=== PATIENT | male | born 1965 | race Caucasian/White ===

== ENCOUNTER 2024-02-10 15:48 | Emergency (ER) | payer MEDICARE, MEDICAID, SELFPAY ==
[2024-02-10 15:54] VITALS: BP 139/82; PULSE 92; RESP 17; TEMP 36.8; O2SAT 98; BMI 29.7
--- NOTE | 2024-02-10 15:59 | ED_ITS ---
HPI - Wound/Laceration General: Chief Complaint: Wound/Laceration Stated Complaint: left foot toe lac Time Seen by Provider: 02/10/24 15:58 Source: patient Mode of arrival: ambulatory History of Present Illness: 58-year-old male presents emergency room complaining of a laceration to his Left fifth toe. He was using a riding mower and got his toe caught in a belt and kirill. He applied a bandage before coming in. He is complaining of pain. Moderate bleeding. Patient is a smoker and he has rheumatoid arthritis he is on methotrexate Associated symptoms: Denies chills or fever(s) Review of Systems Const: Denies: fever(s) or chills PFSH ED PFSH: Medical History (Updated 02/10/24 @ 18:15 by Herminio Curry DO) Chronic GERD Illiteracy Colonoscopy planned screening requested at [facility] 06/22/2023 Tobacco user Chews tobacco Hypertension Insomnia Anxiety and depression Hyperlipidemia Rheumatoid arthritis at [facility] Rheumatology Seasonal allergic rhinitis Family History (Updated 11/09/23 @ 13:26 by Lala Simmons LPN) Father Dialysis complication Mother Dementia Social History (Updated 11/09/23 @ 13:26 by Lala Simmons LPN) Smoking and tobacco/nicotine status: never used tobacco/nicotine Alcohol intake: former Substance/Drug Use: current Substance/Drug use frequency: few times a month Physical Exam Narrative: EXAM NARRATIVE: Large open wound at the distal interphalangeal joint of the right fifth toe the toe itself is unstable appears nearly amputated. On x-ray there is disruption of the DIP joint with air in the joint. Course Vital Signs: Vital signs: Vital Signs Temperature 98.2 F 02/10/24 18:31 Pulse Rate 91 02/10/24 18:31 Respiratory Rate 17 02/10/24 18:31 Blood Pressure 148/98 02/10/24 18:31 Pulse Oximetry 97 02/10/24 18:31 Oxygen Delivery Me thod Room Air 02/10/24 16:32 MDM - Wound/Laceration Medical Decision Making Open fracture with disruption of the joint. Podiatry consulted Dr. Panda was kind enough to come in he evaluated the wound irrigated and has sutured in place he will follow-up next week in the office. Patient started on doxycycline and given hydrocodone for pain discharged home on a postop shoe he may bear weight as tolerated return for signs of infection. Differential Diagnosis Likely laceration Medical Records I reviewed the patient's medical records. Lab Data I reviewed the patient's lab results. Radiology Impressions Foot X-Ray 02/10/24 16:02 IMPRESSION: 1. Laceration of the 5th digit. No radiopaque foreign body. 2. Dislocated distal phalanx of the 5th digit. Transverse fracture through the mid proximal 5th phalanx. ADDENDUM: 02/10/24 2103 Correction, the fracture described in the mid proximal phalanx could also represent a prominent vascular channel, it is a questionable fracture correlate for point tenderness. All radiology interpretation(s) finalized by discharge Discharge Plan Discharge Patient Disposition: Home Clinical Impression: Open fracture of toe of left foot, Laceration Prescriptions: New doxycycline hyclate 100 mg tablet 100 mg PO Q12H 14 Days Qty: 28 0RF hydrocodone-acetaminophen 5-325 mg tablet 1 tab PO Q6H PRN (Reason: pain) 5 Days Qty: 20 0RF No Action duloxetine 60 mg capsule,delayed release(DR/EC) 60 mg PO DAILY fluticasone propionate [Allergy Relief (fluticasone)] 50 mcg/actuation spray,suspension 2 spray intranasal DAILY Rx Instructions: administer into each nostril cetirizine [All Day Allergy (cetirizine)] 10 mg tablet 10 mg PO DAILY PRN (Reason: Allergy Symptoms) lisinopril-hydrochlorothiazide 20-12.5 mg tablet 1 tab PO DAILY Qty: 90 1RF Rx Instructions: NOT STARTED OF 02/10/24 WILL START 02/15/24 folic acid 1 mg tablet 1 mg PO DAILY Qty: 100 1RF diclofenac sodium 75 mg tablet,delayed release (DR/EC) 75 mg PO BID trazodone 50 mg tablet 25 mg PO BEDTIME famotidine 20 mg tablet 20 mg PO BID methotrexate sodium 2.5 mg tablet 17.5 mg PO Q7D Rx Instructions: take #7 tabs weekly, 17.5 mg-ON FRI bupropion HCl 150 mg tablet extended release 24 hr 150 mg PO DAILY Rx Instructions: FOR depression / tobacco cessation lisinopril-hydrochlorothiazide 10-12.5 mg tablet 1 tab PO DAILY Discharge Orders: Discharge ED (Routine); Ordered 02/10/24 Ordered By: Herminio Curry Referrals: Beka Huber MD [Primary Care Provider] - Patient Instructions: Opioid Safety, Pain Management Activity Restrictions/Additional Instructions: Orders from Dr. Panda D.P.M. Please keep your dressing clean, dry and intact until your follow-up visit next week in podiatry clinic with Dr. Panda. Please elevate your left foot while resting. Please wear postop shoe when weightbearing, overall please decrease your activity. You will be contacted on Monday by podiatry clinic for an appointment to be scheduled early next week. Please take doxycycline with food morning and night for the next 14 days [facility] Pain medication hydrocodone 5/325 mg was sent to [facility] to be taken every 6 hours as needed for pain for the next [address] Panda at podiatry clinic [facility] with any questions or concerns for the weekend. 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
--- NOTE | 2024-02-10 16:02 | XRR_ITS ---
PROCEDURE INFORMATION: Exam: XR Left Foot Exam date and time: 02/10/2024 4:22 PM Age: 58 years old Clinical indication: Injury or trauma; Fall; Toes; Left little toe; Foreign body involvement not specified; Patient HX: Laceration to 5th digit of left foot TECHNIQUE: Imaging protocol: Radiologic exam of the left foot. Views: 3 or more views. COMPARISON: No relevant prior studies available. FINDINGS: Bones/joints: Dislocated distal phalanx of the 5th digit. Transverse fracture through the mid proximal 5th phalanx. Soft tissues: Laceration at the 5th digit. No radiopaque foreign body. XR/XR foot LT min 3V* [id number] IMPRESSION: 1. Laceration of the 5th digit. No radiopaque foreign body. 2. Dislocated distal phalanx of the 5th digit. Transverse fracture through the mid proximal 5th phalanx.
[2024-02-10 16:32] VITALS: PULSE 91; O2SAT 97
[2024-02-10] MEDS: ceFAZolin 1,000 MG in sodium chloride 0.9% (plus) 50 ML 100 MG IV (16:37)
[2024-02-10] MEDS: tetanus-dipt-pertussis 0.5 mL SDV IM (16:41)
--- NOTE | 2024-02-10 16:44 | PC.PHAR ---
PT AND PTS SON STATES THE PT GETS HIS MED IN A DOSE [place]-PT STATES HE HASNT STARTED HIS NEW DOSE OF LISINOPRIL 20-HCTZ 12.5MG DAILY WRITTEN ON 02/06/24 STATES PHARMACY WILL BRING 02/15/24 PT STATES STILL TAKING THE LISINOPRIL 10-HCTZ 12.5MG DAILY FILLED ON 01/13/24 30D/S-PT STATES HE TAKES TRAZODONE ONE HALF TAB ONLY PT STATES 25MG HS EXT SHOWS LAST FILLED FOR 50MG TABS TAKE ONE AND ONE-HALF TAB (75MG) HS PT STATES IT WAS FILLED WRONG AND ONLY TAKES THE 25MG HS-NOTES ARE MADE IN THE PHARMACY COMMENTS
[2024-02-10 17:48] VITALS: BP 148/98
--- NOTE | 2024-02-10 17:58 | PM.CONSULT ---
Providers/Reason For Consult Consulting Physician/Specialty*: Kaden Panda D.P.M. Reason for Consult*: Open fracture with laceration left fifth toe, lawnmower trauma Primary Care Provider: Beka Huber MD History of Present Illness History of Present Illness Piero Mattson is a 58 year old male presents to the emergency department with a open toe fracture left fifth toe, sustained an injury from a lawnmower with his foot excellently being caught in a belt and ran to a kirill, date of injury February 10, 2024. Patient utilizes tobacco daily, history of rheumatoid arthritis is on methotrexate. Review of Systems General: Reports: 10 or more systems reviewed and unremarkable except in HPI and below Const: Denies: fever(s) or chills Eyes: Denies: change in vision Card: Denies: chest pain or palpitations Resp: Denies: dyspnea or productive cough GI: Denies: abdominal pain, nausea or vomiting : Denies: flank pain Musc: Reports: extremity swelling, joint stiffness and deformity Skin/Breast: Reports: erythema, sores, changes in skin color, dry skin, nail changes and change in hair Neuro: Reports: numbness in extremities, sensory changes and difficulty walking Psych: Denies: suicidal ideation Endo: Denies: change in body appearance Tiago/Lymph: Denies: tender lymph nodes Medications/Allergies Home Medications Medication Instructions Recorded Confirmed Last Taken Type cetirizine 10 mg tablet (All Day 10 mg PO DAILY PRN Allergy Symptoms 11/09/23 02/12/24 Unknown History Allergy (cetirizine)) duloxetine 60 mg capsule,delayed 60 mg PO DAILY 11/09/23 02/12/24 Unknown History release fluticasone propionate 50 2 spray intranasal DAILY 11/09/23 02/12/24 Unknown History mcg/actuation nasal spray,suspension (Allergy Relief (fluticasone)) folic acid 1 mg tablet 1 mg PO DAILY RA #100 tabs 01/16/24 02/12/24 Unknown Rx lisinopril 20 1 tab PO DAILY for high blood 02/06/24 02/12/24 Unknown Rx mg-hydrochlorothiazide 12.5 mg pressure #90 tabs tablet bupropion HCl 150 mg 24 hr tablet, 150 mg PO DAILY 02/10/24 02/12/24 Unknown History extended release diclofenac sodium 75 mg 75 mg PO BID 02/10/24 02/12/24 Unknown History tablet,delayed release doxycycline hyclate 100 mg tablet 100 mg PO Q12H 14 days #28 tabs 02/10/24 02/12/24 Unknown Rx famotidine 20 mg tablet 20 mg PO BID 02/10/24 02/12/24 Unknown History hydrocodone 5 mg-acetaminophen 325 1 tab PO Q6H PRN pain 5 days #20 02/10/24 02/12/24 Unknown Rx mg tablet tabs lisinopril 10 1 tab PO DAILY 02/10/24 02/12/24 Unknown History mg-hydrochlorothiazide 12.5 mg tablet methotrexate sodium 2.5 mg tablet 17.5 mg PO Q7D RA 02/10/24 02/12/24 02/09/24 History trazodone 50 mg tablet 25 mg PO BEDTIME 02/10/24 02/12/24 Unknown History Allergies Allergy/AdvReac Type Severity Reaction Status Date / Time Penicillins Allergy Unknown Verified 02/12/24 08:11 PFSH Acute PFSH: Medical History Chronic GERD Illiteracy Colonoscopy planned screening requested at [facility] 06/22/2023 Tobacco user Chews tobacco Hypertension Insomnia Anxiety and depression Hyperlipidemia Rheumatoid arthritis at [facility] Rheumatology Seasonal allergic rhinitis Family History Father Dialysis complication Mother Dementia Social History Smoking and tobacco/nicotine status: never used tobacco/nicotine Alcohol intake: former Substance/Drug Use: current Substance/Drug use frequency: few times a month Vitals/I&O/Wt Last Vital Signs Temp 98.2 F 02/10/24 15:54 Pulse 91 02/10/24 16:32 Resp 17 02/10/24 15:54 BP 148/98 02/10/24 17:48 Pulse Ox 97 02/10/24 16:32 O2 Del Method Room Air 02/10/24 16:32 02/10/24 02/10/24 02/10/24 06:59 14:59 22:59 Intake Total 50 / 50 Balance 50 / 50 Weight last 48 hrs Weight 190 lb Physical Exam Narrative: GENERAL: Patient is alert and oriented ?3 and in no acute distress. The following is a focused bilateral lower extremity exam. VASCULAR: Dorsalis pedis and posterior tibial arteries palpable +2. Capillary refill time less than 3 seconds to the distal hallux bilaterally. Calf is supple and nontender proximally and distally. No pedal edema appreciated. Pedal hair growth present. NEUROLOGICAL: Epicritic and protopathic sensations grossly intact to the lower extremities. +2 Achilles tendon reflex noted bilaterally. Negative Tinel sign upon percussion of lower extremity nerves. DERMATOLOGICAL: Open fracture of the left fifth toe at the level of the distal interphalangeal joint, extensive soft tissue damage, extensor digitorum brevis and extensor digitorum longus are transected able to visualize both ends of the tendons both proximally and distally, able to visualize the distal and intermediate phalanx within the wound. Soft tissue deficit extends from 9:00 PM around to 6:00 PM, at the plantar sulcus of the left fifth toe from 6:00 to 9:00 PM is still intact. MUSCULOSKELETAL: Pain to palpation and obvious gross deformity to the left fifth toe drooping downward with open fracture and description as above in dermatological portion of the exam. No other concomitant injuries. A&P Assessment and plan (1) Fracture of proximal phalanx of toe of left foot: (2) Open fracture of left toe: Qualifiers: Encounter type: initial encounter Toe: lesser toe Phalanx: unspecified phalanx Fracture alignment: displaced Qualified Code(s): S92.502B - Displaced unspecified fracture of left lesser toe(s), initial encounter for open fracture (3) Laceration of extensor tendon of left foot: Qualifiers: Encounter type: initial encounter Qualified Code(s): S96.822A - Laceration of other specified muscles and tendons at ankle and foot level, left foot, initial encounter (4) Contact with powered lawnmower as cause of accidental injury: Qualifiers: Encounter type: subsequent encounter Qualified Code(s): 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 Patient utilizes tobacco daily, history of rheumatoid arthritis is on methotrexate. Patient has open fracture with severed extensor tendons and soft tissue deficit at the left fifth toe. I recommended surgical irrigation and repair, patient declined sedation or any level of general anesthetic, his is blind, his son does not have a driver helper's license, he states that he is only means of transportation home. Explained to patient that this could be done under local anesthetic in the emergency department to irrigate the wound and repair extensor tendons and soft tissue, patient is requesting this to be done in the emergency department. I informed the patient that he could be at risk for increased risk of infection, patient is agreeable and says that he would like to proceed. After obtaining verbal consent the left fifth toe was anesthetized with 6 cc of 1% lidocaine plain and a lesser digital block fashion. The left entire foot was scrubbed with chlorhexidine and and windowed with sterile drapes. 4 L of saline mixed with Betadine used to irrigate the left fifth toe. The wound was clean, I did not appreciate any debris or foreign body. Under direct visualization the extensor digitorum brevis and extensor digitorum longus to the fifth toe were reapproximated with 4-0 Vicryl. The fracture dislocation at the distal interphalangeal joint was reduced manually under direct visualization and the joint capsule of the distal interphalangeal joint reapproximated and repaired with 4-0 Vicryl. Skin reapproximated with 4-0 nylon a total of 13 stitches these were simple interrupted were utilized. The left fifth toe was dressed with Xeroform, Jamie and 1 inch Coban without compression as to not obstruct blood flow. After the procedure and repair the left fifth toe demonstrated capillary refill less than 5 seconds, fourth toe capillary refill was less than 3 seconds. The left fifth toe maintain a pink healthy skin tone. Patient was given a postop shoe and advised heel touch for transfers. He is to wear the postop shoe when weightbearing. Advised patient to rest, elevate and he was prescribed hydrocodone to be taken judiciously as needed for pain. Prescribed doxycycline to be taken 100 mg twice daily for the next 10 days. Will follow-up in podiatry clinic on Monday for reevaluation. Coding Level of Care Code Acute Code for Ch Fwd Diagnoses Fracture of proximal phalanx of toe of left foot S92.912A Open displaced fracture of phalanx of lesser toe of left foot, unspecified phalanx, initial encounter S92.502B Encounter type: initial encounter Toe: lesser toe Phalanx: unspecified phalanx Fracture alignment: displaced Laceration of extensor tendon of left foot, initial encounter S96.822A Encounter type: initial encounter Contact with powered lawnmower as cause of accidental injury, subsequent encounter W28.XXXD Encounter type: subsequent encounter Comment CPT 32388 and 26072
[2024-02-10 18:31] VITALS: BP 148/98; PULSE 91; RESP 17; TEMP 36.8; O2SAT 97
== END 2024-02-10 18:33 | disposition home or self-care (01) ==
PROVIDERS: Emergency Provider Family Medicine; PCP Family Medicine Adult Medicine
DX: S92.512B Displaced fracture of proximal phalanx of left lesser toe(s), initial encounter for open fracture (principal); S93.105A Unspecified dislocation of left toe(s), initial encounter; I10 Essential (primary) hypertension; E78.5 Hyperlipidemia, unspecified; W31.89XA Contact with other specified machinery, initial encounter; Z23 Encounter for immunization
CPT/HCPCS: 73630; 90471; 90715; 96365; 99284; J0690

== ENCOUNTER → 2024-02-12 07:52 | Outpatient (BNVA) | payer MEDICARE, MEDICAID, SELFPAY | PROVIDERS: PCP Family Medicine Adult Medicine; Visit Provider Podiatrist Foot & Ankle Surgery | DX: S92.502D Displaced unspecified fracture of left lesser toe(s), subsequent encounter for fracture with routine healing; S99.922D Unspecified injury of left foot, subsequent encounter; W28.XXXD Contact with powered lawn mower, subsequent encounter | CPT/HCPCS: 73630; 99213 ==

== ENCOUNTER → 2024-02-16 10:24 | Outpatient (BNVA) | payer MEDICARE, MEDICAID, SELFPAY | PROVIDERS: PCP Family Medicine Adult Medicine; Visit Provider Podiatrist Foot & Ankle Surgery | DX: Z51.89 Encounter for other specified aftercare (principal); S92.502D Displaced unspecified fracture of left lesser toe(s), subsequent encounter for fracture with routine healing; S99.922D Unspecified injury of left foot, subsequent encounter; W28.XXXD Contact with powered lawn mower, subsequent encounter; M05.79 Rheumatoid arthritis with rheumatoid factor of multiple sites without organ or systems involvement | CPT/HCPCS: 99213 ==

== ENCOUNTER → 2024-02-21 06:55 | Outpatient (BNVA) | payer MEDICARE, MEDICAID, SELFPAY | PROVIDERS: PCP Family Medicine Adult Medicine; Visit Provider Podiatrist Foot & Ankle Surgery | DX: Z51.89 Encounter for other specified aftercare (principal); S92.502D Displaced unspecified fracture of left lesser toe(s), subsequent encounter for fracture with routine healing; W28.XXXD Contact with powered lawn mower, subsequent encounter; M05.79 Rheumatoid arthritis with rheumatoid factor of multiple sites without organ or systems involvement | CPT/HCPCS: 99213 ==

== ENCOUNTER → 2024-02-27 07:58 | Outpatient (BNVA) | payer MEDICARE, MEDICAID, SELFPAY | PROVIDERS: PCP Family Medicine Adult Medicine; Visit Provider Family Medicine Adult Medicine | DX: I10 Essential (primary) hypertension (principal); F41.9 Anxiety disorder, unspecified; F32.A Depression, unspecified; M05.79 Rheumatoid arthritis with rheumatoid factor of multiple sites without organ or systems involvement | CPT/HCPCS: 80053; 84443; 85025; 86431; G0103 ==

== ENCOUNTER → 2024-03-06 07:19 | Outpatient (BNVA) | payer MEDICARE, MEDICAID, SELFPAY | PROVIDERS: PCP Family Medicine Adult Medicine; Visit Provider Podiatrist Foot & Ankle Surgery | DX: S92.502D Displaced unspecified fracture of left lesser toe(s), subsequent encounter for fracture with routine healing (principal); W28.XXXD Contact with powered lawn mower, subsequent encounter; M05.79 Rheumatoid arthritis with rheumatoid factor of multiple sites without organ or systems involvement; S99.922D Unspecified injury of left foot, subsequent encounter | CPT/HCPCS: 99213 ==

== ENCOUNTER → 2024-03-20 07:08 | Outpatient (BNVA) | payer MEDICARE, MEDICAID, SELFPAY | PROVIDERS: PCP Family Medicine Adult Medicine; Visit Provider Podiatrist Foot & Ankle Surgery | DX: S92.502D Displaced unspecified fracture of left lesser toe(s), subsequent encounter for fracture with routine healing (principal); W28.XXXD Contact with powered lawn mower, subsequent encounter; M05.79 Rheumatoid arthritis with rheumatoid factor of multiple sites without organ or systems involvement | CPT/HCPCS: 99213 ==

== ENCOUNTER → 2025-03-03 13:50 | Outpatient (BNVA) | payer MEDICARE, SELFPAY | PROVIDERS: PCP Family Medicine; Visit Provider Family Medicine | DX: I10 Essential (primary) hypertension (principal) | CPT/HCPCS: 80053; 80061; 84439; 84443; 85025; 86431 ==

== ENCOUNTER → 2025-09-09 09:28 | Outpatient (BNVA) | payer MEDICARE, SELFPAY | PROVIDERS: PCP Family Medicine; Referring Provider Family Medicine; Visit Provider Internal Medicine Rheumatology | DX: M05.79 Rheumatoid arthritis with rheumatoid factor of multiple sites without organ or systems involvement (principal); Z79.899 Other long term (current) drug therapy; Z71.85 Encounter for immunization safety counseling | CPT/HCPCS: 36415; 80076; 82565; 85025; 85651; 86140; 86480; 86704; 86803; 87340; 99214 ==